=== PATIENT | male | born 1945 | race Caucasian/White ===

== ENCOUNTER 2023-07-03 12:39 | Inpatient (IN) | payer OTHER, MEDICAID ==
[~2023-07-03] VITALS: Ht 157.5 cm; Wt 79.9 kg
[~2023-07-03 12:39] MED LIST: AMLO10TA80 MT; HYDR50TA40 MT; LOSA100T33 MT; METF-416 MT; OMEP20CA14 MT; TAMS-11 MT
[2023-07-03 13:51] LABS: BASOPHILS % 0.7 % (0.0-2.0); EOSINOPHILS % 0.5 % (0.0-5.0); HEMATOCRIT. 38.9 % (42.0-52.0); HEMOGLOBIN. 13.1 g/dL (14.0-18.0); MEAN CORPUSCULAR HEMOGLOBIN 31.3 pg (28.0-32.0); MEAN CORPUSCULAR HGB CONC 33.8 g/dL (31.0-37.0); MEAN CORPUSCULAR VOLUME 92.5 fL (80.0-94.0); MEAN PLATELET VOLUME 8.2 fl (7.4-10.4); MONOCYTES % 7.6 % (2.0-8.0); NEUTROPHILS % 74.2 % (40.0-76.0); PLATELET 184 x1000/uL (130-400); RED CELL DISTRIBUTION WIDTH 13.8 % (11.6-14.6); WHITE BLOOD COUNT 4.6 x1000/uL (4.5-11.0)
[2023-07-03] MEDS: NITROGLYCERIN 0.4MG TABLET SL SL ONE (13:57)
[2023-07-03] MEDS: ASPIRIN 325MG EC TABLET PO ONE (13:57)
[2023-07-03 13:58] LABS: CHLORIDE 105 mEq/L (98-107); POTASSIUM 3.3 mEq/L (3.5-5.1); SODIUM 139 mEq/L (136-145)
[2023-07-03 13:59] LABS: CARBON DIOXIDE 25 mEq/L (21-32)
[2023-07-03 14:00] LABS: CALCIUM 9.5 mg/dL (8.7-10.4)
[2023-07-03 14:04] LABS: GLUCOSE 257 mg/dL (70-105); PROTHROMBIN TIME 11.1 sec (9.6-11.0); UREA NITROGEN BLOOD 12 mg/dL (9-23)
[2023-07-03 14:06] LABS: ALANINE AMINOTRANSFERASE 19 IU/L (10-49); ALBUMIN 4.1 g/dL (3.2-4.8); ASPARTATE AMINOTRANSFERASE 25 IU/L (<34)
[2023-07-03 14:07] LABS: BILIRUBIN TOTAL 0.8 mg/dL (0.1-1.0); PROTEIN TOTAL 7.2 g/dL (6.0-8.3)
[2023-07-03 14:08] LABS: TROPONIN I HIGH SENSITIVITY 75 ng/L (3.0-53)
[2023-07-03] MEDS: ASPIRIN 325MG EC TABLET PO NR (17:08)
[2023-07-03] MEDS: NITROGLYCERIN 0.4MG TABLET SL SL NR (17:12)
[2023-07-03] MEDS: ENOXAPARIN 100MG/ML SYR SUBCUT NR (17:17)
[2023-07-03 22:40] VITALS: BP 148/79; PULSE 78; PULSE 84; RESP 17; TEMP 98
[2023-07-04] VITALS (7 sets, daily range): BP systolic 94–165; BP diastolic 41–67; PULSE 63–90; RESP 14–24; TEMP 97.5–98
[2023-07-04] MEDS ORDERED: NALOXONE HCL 0.4MG/ML VIAL IV PRN (02:30)
[2023-07-04] MEDS: HYDRALAZINE HCL 100MG TABLET PO SCH (05:39)
[2023-07-04] MEDS: HYDROCODONE/ACETAMINOPHEN 5/325MG TABLET PO PRN (07:09)
[2023-07-04] MEDS: OMEPRAZOLE 20MG CAPSULE EXTENDED RELEASE PO SCH (07:09)
[2023-07-04 08:27] LABS: BASOPHILS % 0.9 % (0.0-2.0); EOSINOPHILS % 2.3 % (0.0-5.0); HEMATOCRIT. 41.2 % (42.0-52.0); HEMOGLOBIN. 14.1 g/dL (14.0-18.0); LYMPHOCYTES % 27.8 % (20.0-50.0); MEAN CORPUSCULAR HEMOGLOBIN 31.2 pg (28.0-32.0); MEAN CORPUSCULAR HGB CONC 34.4 g/dL (31.0-37.0); MEAN CORPUSCULAR VOLUME 90.8 fL (80.0-94.0); MEAN PLATELET VOLUME 8.2 fl (7.4-10.4); MONOCYTES % 6.5 % (2.0-8.0); NEUTROPHILS % 62.5 % (40.0-76.0); PLATELET 180 x1000/uL (130-400); RED BLOOD CELL COUNT 4.53 mill/uL (4.7-6.1); WHITE BLOOD COUNT 5.1 x1000/uL (4.5-11.0)
[2023-07-04 08:31] LABS: CHLORIDE 104 mEq/L (98-107); POTASSIUM 3.8 mEq/L (3.5-5.1); SODIUM 137 mEq/L (136-145)
[2023-07-04 08:32] LABS: CALCIUM 9.5 mg/dL (8.7-10.4); CARBON DIOXIDE 22 mEq/L (21-32)
[2023-07-04 08:37] LABS: CREATININE 0.9 mg/dL (0.6-1.3); GLUCOSE 161 mg/dL (70-105); TRIGLYCERIDE 99 mg/dL (0-150); UREA NITROGEN BLOOD 10 mg/dL (9-23)
[2023-07-04 08:38] LABS: LDL CHOLESTEROL 76 mg/dL (5-100)
[2023-07-04 08:39] LABS: CHOLESTEROL 143 mg/dL (<200); HDL CHOLESTEROL 59 mg/dL (>55)
[2023-07-04 08:56] LABS: TROPONIN I HIGH SENSITIVITY 1890 ng/L (3.0-53)
[2023-07-04] MEDS ORDERED: DEXTROSE 50% WATER 50ML SYRINGE IV PRN (09:30)
[2023-07-04] MEDS: METOPROLOL TARTRATE 100MG TABLET PO SCH (09:42)
[2023-07-04] MEDS: TAMSULOSIN HCL 0.4MG SR CAPSULE PO SCH (09:42)
[2023-07-04] MEDS: AMLODIPINE 10MG TABLET PO SCH (09:42)
[2023-07-04] MEDS: ENOXAPARIN 40MG/0.4ML SYR SUBCUT SCH (09:42)
[2023-07-04] MEDS: METFORMIN HCL 500MG TABLET PO SCH (09:42)
[2023-07-04] MEDS: LOSARTAN 100 MG TABLET PO SCH (09:42)
[2023-07-04] MEDS: ASPIRIN 81MG TABLET PO SCH (10:00)
[2023-07-04] MEDS: BLOOD SUGAR DIAGNOSTIC STRIP TEST SCH (12:40)
[2023-07-04 13:10] LABS: BASOPHILS % 0.5 % (0.0-2.0); EOSINOPHILS % 0.8 % (0.0-5.0); HEMOGLOBIN. 13.4 g/dL (14.0-18.0); MEAN CORPUSCULAR HEMOGLOBIN 31.2 pg (28.0-32.0); MEAN CORPUSCULAR HGB CONC 34.4 g/dL (31.0-37.0); MEAN CORPUSCULAR VOLUME 90.7 fL (80.0-94.0); MEAN PLATELET VOLUME 8.3 fl (7.4-10.4); MONOCYTES % 6.8 % (2.0-8.0); NEUTROPHILS % 78.9 % (40.0-76.0); PLATELET 168 x1000/uL (130-400); WHITE BLOOD COUNT 6.3 x1000/uL (4.5-11.0)
[2023-07-04] MEDS: INSULIN LISPRO 100 UNITS/ML SUBCUT SCH (13:10)
[2023-07-04] MEDS ORDERED: LIDOCAINE HCL 1% 20ML VIAL (Pyxis) INJ ONE (13:14)
[2023-07-04 13:15] LABS: PARTIAL THROMBOPLASTIN TIME 46.1 sec (23.4-31.0); PROTHROMBIN TIME 11.3 sec (9.6-11.0)
[2023-07-04] MEDS ORDERED: MIDAZOLAM HCL 2 MG/2 ML VIAL ONE (13:50)
[2023-07-04] MEDS ORDERED: FENTANYL CITRATE/PF 50MCG/ML 2ML VIAL ONE (13:50)
[2023-07-04] MEDS: SODIUM CHLORIDE 0.45% 250 ML IV SCH (14:15)
[2023-07-04] MEDS ORDERED: ATROPINE SULFATE 1MG/10ML SYR IV PRN (14:15)
[2023-07-04] MEDS ORDERED: HEPARIN 5000 UNITS/ML VIAL IV NR (16:00)
[2023-07-04] MEDS: HEPARIN 25,000 UNITS PREMIX 250 ML IV PRN (20:05)
[2023-07-04 22:59] LABS: TROPONIN I HIGH SENSITIVITY 1713 ng/L (3.0-53)
[2023-07-04 23:53] LABS: TROPONIN I HIGH SENSITIVITY 1854 ng/L (3.0-53)
[2023-07-05] VITALS: BP 108/60; PULSE 64; RESP 18; TEMP 97.8
[2023-07-05] MEDS ORDERED: HEPARIN 5000 UNITS/ML VIAL IV PRN
[2023-07-05] MEDS: HEPARIN 5000 UNITS/ML VIAL IV PRN (03:00)
[2023-07-05 04:00] VITALS: BP 102/44; PULSE 63; RESP 18; TEMP 97.6
[2023-07-05 06:33] LABS: POTASSIUM 3.9 mEq/L (3.5-5.1)
[2023-07-05 06:35] LABS: CALCIUM 8.6 mg/dL (8.7-10.4)
[2023-07-05 06:45] LABS: BASOPHILS % 0.6 % (0.0-2.0); EOSINOPHILS % 1.1 % (0.0-5.0); HEMATOCRIT. 36.2 % (42.0-52.0); HEMOGLOBIN. 12.3 g/dL (14.0-18.0); LYMPHOCYTES % 14.8 % (20.0-50.0); MEAN CORPUSCULAR HEMOGLOBIN 31.5 pg (28.0-32.0); MEAN CORPUSCULAR VOLUME 92.7 fL (80.0-94.0); MEAN PLATELET VOLUME 8.7 fl (7.4-10.4); MONOCYTES % 9.3 % (2.0-8.0); NEUTROPHILS % 74.2 % (40.0-76.0); PLATELET 150 x1000/uL (130-400); RED BLOOD CELL COUNT 3.91 mill/uL (4.7-6.1); RED CELL DISTRIBUTION WIDTH 13.7 % (11.6-14.6); WHITE BLOOD COUNT 5.2 x1000/uL (4.5-11.0)
[2023-07-05 06:58] LABS: CREATININE 1.8 mg/dL (0.6-1.3)
[2023-07-05 08:00] VITALS: BP 94/52; PULSE 78; RESP 17; TEMP 97.8; TEMP 98
[2023-07-05] MEDS: ACETAMINOPHEN 325MG TABLET PO PRN (08:32)
[2023-07-05 12:00] VITALS: BP 98/50; PULSE 61; RESP 23; TEMP 98.3
[2023-07-05] MEDS: SODIUM CHLORIDE 0.9% 1,000 ML IV SCH ×2 (13:31→21:41)
[2023-07-05 16:04] VITALS: BP 90/62; PULSE 65; RESP 21; TEMP 98.2
[2023-07-05 20:00] VITALS: BP 95/57; PULSE 63; RESP 15; TEMP 98.2
[2023-07-05] MEDS: ATORVASTATIN CALCIUM 40MG TABLET PO SCH (21:38)
[2023-07-05] MEDS: DOCUSATE SODIUM 100MG CAPSULE PO NR (21:41)
[2023-07-05] MEDS: POLYETHYLENE GLYCOL 3350 (17GM) 1 DOSE PACK PO NR (21:41)
[2023-07-06] VITALS (9 sets, daily range): BP systolic 99–127; BP diastolic 36–56; PULSE 65–88; RESP 12–22; TEMP 97.5–98.4
[2023-07-06 06:53] LABS: CHLORIDE 106 mEq/L (98-107); POTASSIUM 3.9 mEq/L (3.5-5.1); SODIUM 135 mEq/L (136-145)
[2023-07-06 06:54] LABS: CALCIUM 8.9 mg/dL (8.7-10.4); CARBON DIOXIDE 22 mEq/L (21-32)
[2023-07-06 06:59] LABS: CREATININE 1.9 mg/dL (0.6-1.3); GLUCOSE 126 mg/dL (70-105); UREA NITROGEN BLOOD 24 mg/dL (9-23)
[2023-07-06 07:01] LABS: CREATINE KINASE 413 IU/L (46-171)
[2023-07-06 07:02] LABS: PHOSPHORUS 4.3 mg/dL (2.5-4.9)
[2023-07-06 07:49] LABS: BASOPHILS % 0.5 % (0.0-2.0); EOSINOPHILS % 1.2 % (0.0-5.0); HEMOGLOBIN. 12.7 g/dL (14.0-18.0); LYMPHOCYTES % 19.9 % (20.0-50.0); MEAN CORPUSCULAR HEMOGLOBIN 31.5 pg (28.0-32.0); MEAN CORPUSCULAR HGB CONC 34.4 g/dL (31.0-37.0); MEAN CORPUSCULAR VOLUME 91.5 fL (80.0-94.0); MONOCYTES % 8.7 % (2.0-8.0); NEUTROPHILS % 69.7 % (40.0-76.0); PLATELET 144 x1000/uL (130-400); RED BLOOD CELL COUNT 4.04 mill/uL (4.7-6.1); RED CELL DISTRIBUTION WIDTH 13.8 % (11.6-14.6); WHITE BLOOD COUNT 4.7 x1000/uL (4.5-11.0)
[2023-07-06 08:49] LABS: CLARITY URINE CLEAR (CLEAR); COLOR URINE YELLOW (YELLOW); GLUCOSE URINE NEGATIVE (NEGATIVE); KETONES URINE 1+ (NEGATIVE); LEUKOCYTE ESTERASE URINE NEGATIVE (NEGATIVE); NITRITE URINE NEGATIVE (NEGATIVE); OCCULT BLOOD URINE NEGATIVE (NEGATIVE); PROTEIN URINE NEGATIVE (NEGATIVE); SPECIFIC GRAVITY URINE 1.014 (1.005-1.030); UROBILINOGEN URINE 0.2 E.U./dL (0.2-1.0)
[2023-07-06 12:42] LABS: BG CARBOXYHEMOGLOBIN 0.3 % (0.5-1.5); BG DEOXYHEMOGLOBIN 3.4 % (0.0-5.0); BG FRACTION INSPIRED OXYGEN 28; BG HCO3 ACT 18.9 mmol/L (22.0-26.0); BG METHEMOGLOBIN 0.2 % (0.0-1.5); BG OXYGEN SATURATION 96.6 % (92.0-98.5); BG OXYHEMOGLOBIN 96.1 % (94.0-97.0); BG PO2 90.1 mmHg (75.0-100.0); BG TOTAL HEMOGLOBIN 13.8 g/dL (12.0-18.0); BG VENT MODE NASAL CANNULA
[2023-07-06] MEDS: METOPROLOL TARTRATE 25MG TABLET PO NR (13:35)
[2023-07-06] MEDS: HYDRALAZINE HCL 25MG TABLET PO SCH (14:00)
[2023-07-06] MEDS: METOPROLOL TARTRATE 25MG TABLET PO SCH (20:54)
[2023-07-07] VITALS: BP 91/40; PULSE 57; RESP 10; TEMP 97.8
[2023-07-07 04:00] VITALS: BP 100/44; PULSE 66; RESP 19; TEMP 98
[2023-07-07 06:25] LABS: BASOPHILS % 0.5 % (0.0-2.0); EOSINOPHILS % 1.3 % (0.0-5.0); HEMATOCRIT. 33.5 % (42.0-52.0); HEMOGLOBIN. 11.6 g/dL (14.0-18.0); LYMPHOCYTES % 19.8 % (20.0-50.0); MEAN CORPUSCULAR HEMOGLOBIN 31.5 pg (28.0-32.0); MEAN CORPUSCULAR HGB CONC 34.5 g/dL (31.0-37.0); MEAN CORPUSCULAR VOLUME 91.4 fL (80.0-94.0); MEAN PLATELET VOLUME 8.6 fl (7.4-10.4); MONOCYTES % 10.7 % (2.0-8.0); NEUTROPHILS % 67.7 % (40.0-76.0); PLATELET 124 x1000/uL (130-400); RED BLOOD CELL COUNT 3.67 mill/uL (4.7-6.1); RED CELL DISTRIBUTION WIDTH 13.5 % (11.6-14.6)
[2023-07-07 06:29] LABS: CALCIUM 8.4 mg/dL (8.7-10.4); CARBON DIOXIDE 22 mEq/L (21-32); CHLORIDE 106 mEq/L (98-107); SODIUM 136 mEq/L (136-145)
[2023-07-07 06:34] LABS: CREATININE 1.3 mg/dL (0.6-1.3); GLUCOSE 101 mg/dL (70-105)
[2023-07-07 06:35] LABS: UREA NITROGEN BLOOD 19 mg/dL (9-23)
[2023-07-07 06:37] LABS: PHOSPHORUS 4.2 mg/dL (2.5-4.9)
[2023-07-07 08:00] VITALS: BP 122/50; PULSE 73; RESP 16; TEMP 97.7
[2023-07-07] MEDS: AZITHROMYCIN 500 MG TABLET PO NR (09:29)
[2023-07-07] MEDS: FAMOTIDINE 20MG TABLET PO SCH (09:29)
[2023-07-07] MEDS: CEFTRIAXONE 1GM/50ML 50 ML IV SCH (11:15)
[2023-07-07 12:00] VITALS: BP 114/58; PULSE 58; RESP 17; TEMP 98.2
[2023-07-07 16:00] VITALS: BP 112/61; PULSE 67; RESP 18; TEMP 98.5
[2023-07-07 20:00] VITALS: BP 132/58; PULSE 73; RESP 16; TEMP 97.3
[2023-07-08] VITALS (7 sets, daily range): BP systolic 125–148; BP diastolic 55–70; PULSE 60–81; RESP 14–22; TEMP 97.6–98.9
[2023-07-08 05:52] LABS: BASOPHILS % 0.7 % (0.0-2.0); HEMATOCRIT. 33.5 % (42.0-52.0); HEMOGLOBIN. 11.6 g/dL (14.0-18.0); MEAN CORPUSCULAR HEMOGLOBIN 31.6 pg (28.0-32.0); MEAN CORPUSCULAR HGB CONC 34.8 g/dL (31.0-37.0); MEAN CORPUSCULAR VOLUME 90.9 fL (80.0-94.0); MEAN PLATELET VOLUME 9.3 fl (7.4-10.4); MONOCYTES % 9.8 % (2.0-8.0); NEUTROPHILS % 69.5 % (40.0-76.0); PLATELET 131 x1000/uL (130-400); RED BLOOD CELL COUNT 3.68 mill/uL (4.7-6.1); RED CELL DISTRIBUTION WIDTH 13.6 % (11.6-14.6)
[2023-07-08 05:54] LABS: CHLORIDE 105 mEq/L (98-107); POTASSIUM 4.2 mEq/L (3.5-5.1); SODIUM 135 mEq/L (136-145)
[2023-07-08 05:55] LABS: CALCIUM 8.7 mg/dL (8.7-10.4); CARBON DIOXIDE 22 mEq/L (21-32)
[2023-07-08 06:00] LABS: CREATININE 1.1 mg/dL (0.6-1.3); GLUCOSE 172 mg/dL (70-105); UREA NITROGEN BLOOD 16 mg/dL (9-23)
[2023-07-08 06:02] LABS: PHOSPHORUS 3.5 mg/dL (2.5-4.9)
[2023-07-08] MEDS: AZITHROMYCIN 250 MG TABLET PO SCH (08:51)
[2023-07-08] MEDS: NITROGLYCERIN 0.4MG TABLET SL SL PRN (22:41)
[2023-07-09] VITALS: BP 145/69; PULSE 63; RESP 12; TEMP 98.3
[2023-07-09 04:00] VITALS: BP 144/98; PULSE 66; RESP 19; TEMP 97.6
[2023-07-09 08:00] VITALS: BP 150/53; PULSE 73; RESP 21; TEMP 98.2
[2023-07-09 12:00] VITALS: BP 133/81; PULSE 70; RESP 20; TEMP 97.9
[2023-07-09] MEDS ORDERED: NALOXONE HCL 0.4MG/ML VIAL IV PRN (13:45)
[2023-07-09] MEDS: CLOPIDOGREL 75MG TABLET PO NR (14:51)
[2023-07-09] MEDS: AMLODIPINE 2.5MG TABLET PO SCH (14:54)
[2023-07-09 16:00] VITALS: BP 151/84; PULSE 72; RESP 20; TEMP 98
[2023-07-09 19:50] VITALS: BP 161/54; PULSE 77; RESP 22; TEMP 98.6
[2023-07-10] VITALS (7 sets, daily range): BP systolic 96–149; BP diastolic 66–78; PULSE 64–83; RESP 14–27; TEMP 97.6–98.5
[2023-07-10] MEDS: MORPHINE SULFATE 2 MG/ML CPJ (NOT FOR IM USE) IV PRN (01:36)
[2023-07-10 07:03] LABS: BASOPHILS % 0.4 % (0.0-2.0); EOSINOPHILS % 0.6 % (0.0-5.0); HEMATOCRIT. 34.6 % (42.0-52.0); LYMPHOCYTES % 10.8 % (20.0-50.0); MEAN CORPUSCULAR HEMOGLOBIN 31.6 pg (28.0-32.0); MEAN CORPUSCULAR HGB CONC 34.8 g/dL (31.0-37.0); MEAN CORPUSCULAR VOLUME 90.7 fL (80.0-94.0); MEAN PLATELET VOLUME 9.8 fl (7.4-10.4); MONOCYTES % 8.5 % (2.0-8.0); NEUTROPHILS % 79.7 % (40.0-76.0); PLATELET 146 x1000/uL (130-400); RED BLOOD CELL COUNT 3.81 mill/uL (4.7-6.1); RED CELL DISTRIBUTION WIDTH 13.7 % (11.6-14.6); WHITE BLOOD COUNT 6.3 x1000/uL (4.5-11.0)
[2023-07-10 07:16] LABS: CARBON DIOXIDE 23 mEq/L (21-32); CHLORIDE 105 mEq/L (98-107); POTASSIUM 3.7 mEq/L (3.5-5.1); SODIUM 136 mEq/L (136-145)
[2023-07-10 07:17] LABS: CALCIUM 9.2 mg/dL (8.7-10.4)
[2023-07-10 07:22] LABS: GLUCOSE 124 mg/dL (70-105); UREA NITROGEN BLOOD 11 mg/dL (9-23)
[2023-07-10 07:24] LABS: PHOSPHORUS 3.3 mg/dL (2.5-4.9)
[2023-07-10] MEDS ORDERED: VERAPAMIL HCL 2.5 MG/1 ML 2ML VIAL IV ONE ×2 (08:16→10:14)
[2023-07-10] MEDS ORDERED: LIDOCAINE HCL 1% 10 MG/ML 10ML VIAL ONE (08:16)
[2023-07-10] MEDS ORDERED: IODIXANOL 320MG/ML 100 ML BOTTLE IV ONE ×6 (08:17→15:17)
[2023-07-10] MEDS ORDERED: HEPARIN 1000 UNITS/ML 10ML ONE ×2 (08:17→09:43)
[2023-07-10] MEDS ORDERED: DIPHENHYDRAMINE 50MG/ML VIAL ONE (08:17)
[2023-07-10] MEDS ORDERED: NOREPINEPHRINE 8MG/250ML PMX 250 ML IV ONE (08:53)
[2023-07-10] MEDS ORDERED: FENTANYL CITRATE/PF 50MCG/ML 2ML VIAL ONE (08:58)
[2023-07-10] MEDS ORDERED: MIDAZOLAM HCL 2 MG/2 ML VIAL ONE (08:58)
[2023-07-10] MEDS ORDERED: METOPROLOL TARTRATE 5MG/5ML VIAL IV ONE ×2 (09:17→09:42)
[2023-07-10] MEDS ORDERED: AMIODARONE HCL 50MG/ML 3ML VIAL IV ONE (09:19)
[2023-07-10] MEDS ORDERED: AMIODARONE HCL 900 MG in DEXT 5% WATER 500 ML IV PRN (09:45)
[2023-07-10] MEDS ORDERED: CLOPIDOGREL 75MG TABLET ONE (10:19)
[2023-07-10] MEDS ORDERED: ATROPINE SULFATE 1MG/10ML SYR IV PRN (11:30)
[2023-07-10] MEDS: SODIUM CHLORIDE 0.45% 250 ML IV ONE (11:42)
[2023-07-10] MEDS ORDERED: VANCOMYCIN HCL 500 MG/VIAL ONE (13:04)
[2023-07-10] MEDS: METOPROLOL TARTRATE 25MG TABLET PO NR (14:40)
[2023-07-10] MEDS: ZOLPIDEM TARTRATE 5MG TABLET PO PRN (21:45)
[2023-07-11] VITALS (7 sets, daily range): BP systolic 88–144; BP diastolic 49–85; PULSE 67–125; RESP 18–32; TEMP 98.3–98.9
[2023-07-11] MEDS: AMIODARONE HCL 200 MG TABLET PO NR (04:04)
[2023-07-11] MEDS: DILTIAZEM HCL 5MG/ML 5ML VIAL IV NR (04:05)
[2023-07-11 07:45] LABS: BASOPHILS % 0.3 % (0.0-2.0); EOSINOPHILS % 0.2 % (0.0-5.0); HEMOGLOBIN. 11.1 g/dL (14.0-18.0); LYMPHOCYTES % 11.1 % (20.0-50.0); MEAN CORPUSCULAR HEMOGLOBIN 31.6 pg (28.0-32.0); MEAN CORPUSCULAR HGB CONC 33.8 g/dL (31.0-37.0); MEAN CORPUSCULAR VOLUME 93.5 fL (80.0-94.0); MEAN PLATELET VOLUME 9.1 fl (7.4-10.4); MONOCYTES % 10.4 % (2.0-8.0); PLATELET 128 x1000/uL (130-400); RED BLOOD CELL COUNT 3.53 mill/uL (4.7-6.1); RED CELL DISTRIBUTION WIDTH 13.6 % (11.6-14.6); WHITE BLOOD COUNT 6.9 x1000/uL (4.5-11.0)
[2023-07-11 08:03] LABS: CHLORIDE 104 mEq/L (98-107); POTASSIUM 3.6 mEq/L (3.5-5.1); SODIUM 132 mEq/L (136-145)
[2023-07-11 08:06] LABS: CARBON DIOXIDE 22 mEq/L (21-32)
[2023-07-11 08:07] LABS: CALCIUM 8.4 mg/dL (8.7-10.4)
[2023-07-11 08:12] LABS: GLUCOSE 182 mg/dL (70-105); UREA NITROGEN BLOOD 11 mg/dL (9-23)
[2023-07-11] MEDS: CLOPIDOGREL 75MG TABLET PO SCH (09:47)
[2023-07-11] MEDS: AMIODARONE HCL 200 MG TABLET PO SCH (11:03)
[2023-07-11] MEDS: ACETAMINOPHEN 325MG TABLET PO PRN (23:49)
[2023-07-12] VITALS: BP 125/50; PULSE 64; RESP 23; TEMP 98.2
[2023-07-12 04:00] VITALS: BP 105/47; PULSE 62; RESP 21; TEMP 98
[2023-07-12 06:45] LABS: BASOPHILS % 0.6 % (0.0-2.0); EOSINOPHILS % 1.7 % (0.0-5.0); HEMATOCRIT. 29.1 % (42.0-52.0); HEMOGLOBIN. 10.2 g/dL (14.0-18.0); LYMPHOCYTES % 13.4 % (20.0-50.0); MEAN CORPUSCULAR HEMOGLOBIN 31.8 pg (28.0-32.0); MEAN CORPUSCULAR HGB CONC 35.1 g/dL (31.0-37.0); MEAN CORPUSCULAR VOLUME 90.8 fL (80.0-94.0); MEAN PLATELET VOLUME 9.4 fl (7.4-10.4); MONOCYTES % 11.8 % (2.0-8.0); NEUTROPHILS % 72.5 % (40.0-76.0); PLATELET 129 x1000/uL (130-400); RED BLOOD CELL COUNT 3.21 mill/uL (4.7-6.1); RED CELL DISTRIBUTION WIDTH 13.6 % (11.6-14.6); WHITE BLOOD COUNT 4.8 x1000/uL (4.5-11.0)
[2023-07-12 06:58] LABS: CARBON DIOXIDE 26 mEq/L (21-32); CHLORIDE 102 mEq/L (98-107); POTASSIUM 3.8 mEq/L (3.5-5.1); SODIUM 135 mEq/L (136-145)
[2023-07-12 06:59] LABS: CALCIUM 8.3 mg/dL (8.7-10.4)
[2023-07-12 07:04] LABS: GLUCOSE 120 mg/dL (70-105); UREA NITROGEN BLOOD 15 mg/dL (9-23)
[2023-07-12 07:05] LABS: THYROID STIMULATING HORMONE 0.93 uIU/mL (0.55-4.78)
[2023-07-12 07:06] LABS: PHOSPHORUS 3.5 mg/dL (2.5-4.9)
[2023-07-12] MEDS ORDERED: VERAPAMIL HCL 2.5 MG/1 ML 2ML VIAL IV ONE (07:53)
[2023-07-12] MEDS ORDERED: LIDOCAINE HCL 1% 20ML VIAL (Pyxis) INJ ONE (07:53)
[2023-07-12] MEDS ORDERED: HEPARIN 1000 UNITS/ML 10ML ONE (07:54)
[2023-07-12] MEDS ORDERED: MIDAZOLAM HCL 2 MG/2 ML VIAL ONE (07:54)
[2023-07-12] MEDS ORDERED: FENTANYL CITRATE/PF 50MCG/ML 2ML VIAL ONE (07:54)
[2023-07-12 08:00] VITALS: BP 128/62; PULSE 84; RESP 14; TEMP 98.1
[2023-07-12] MEDS ORDERED: DIPHENHYDRAMINE 50MG/ML VIAL ONE (09:00)
[2023-07-12] MEDS ORDERED: CLOPIDOGREL 75MG TABLET ONE (10:20)
[2023-07-12] MEDS ORDERED: ATROPINE SULFATE 1MG/10ML SYR IV PRN (11:00)
[2023-07-12 12:00] VITALS: BP 136/88; PULSE 58; RESP 19; TEMP 98.3
[2023-07-12 16:00] VITALS: BP 137/71; PULSE 66; RESP 22; TEMP 98
[2023-07-12 20:00] VITALS: BP 126/62; PULSE 70; RESP 24; TEMP 98.2
[2023-07-13] VITALS: BP 120/71; PULSE 60; RESP 17; TEMP 98.5
[2023-07-13] MEDS: DOCUSATE SODIUM 250MG CAPSULE PO PRN (01:29)
[2023-07-13] MEDS: FAMOTIDINE 20MG TABLET PO SCH (01:29)
[2023-07-13 04:00] VITALS: BP 125/59; PULSE 54; RESP 13; TEMP 98.9
[2023-07-13 07:06] LABS: CHLORIDE 101 mEq/L (98-107); POTASSIUM 3.8 mEq/L (3.5-5.1); SODIUM 134 mEq/L (136-145)
[2023-07-13 07:07] LABS: CARBON DIOXIDE 26 mEq/L (21-32)
[2023-07-13 07:08] LABS: CALCIUM 8.5 mg/dL (8.7-10.4)
[2023-07-13 07:12] LABS: GLUCOSE 124 mg/dL (70-105); UREA NITROGEN BLOOD 15 mg/dL (9-23)
[2023-07-13 07:21] LABS: BASOPHILS % 0.5 % (0.0-2.0); EOSINOPHILS % 3.1 % (0.0-5.0); HEMATOCRIT. 30.8 % (42.0-52.0); HEMOGLOBIN. 10.6 g/dL (14.0-18.0); LYMPHOCYTES % 15.7 % (20.0-50.0); MEAN CORPUSCULAR HEMOGLOBIN 31.4 pg (28.0-32.0); MEAN CORPUSCULAR HGB CONC 34.6 g/dL (31.0-37.0); MEAN CORPUSCULAR VOLUME 90.8 fL (80.0-94.0); MEAN PLATELET VOLUME 8.9 fl (7.4-10.4); MONOCYTES % 11.3 % (2.0-8.0); NEUTROPHILS % 69.4 % (40.0-76.0); PLATELET 156 x1000/uL (130-400); RED BLOOD CELL COUNT 3.39 mill/uL (4.7-6.1); RED CELL DISTRIBUTION WIDTH 13.3 % (11.6-14.6)
[2023-07-13 08:00] VITALS: BP 141/74; PULSE 74; RESP 16; TEMP 98.6
[2023-07-13] MEDS ORDERED: LIP40 PO (10:42)
[2023-07-13] MEDS ORDERED: AMIO100T4 MT (10:42)
[2023-07-13] MEDS ORDERED: METO25TA6 PO (10:42)
[2023-07-13] MEDS ORDERED: ASPI-1160 PO (10:42)
[2023-07-13] MEDS ORDERED: CLOP-31 PO (10:42)
[2023-07-13] MEDS ORDERED: AMI2 PO (10:42)
[2023-07-13 12:00] VITALS: BP 153/49; PULSE 62; RESP 20; TEMP 98.4
[2023-07-13] MEDS: ACETAMINOPHEN 325MG TABLET PO PRN (13:31)
[2023-07-13 16:00] VITALS: BP 133/66; PULSE 67; RESP 20; TEMP 98.1
[2023-07-13 20:03] VITALS: BP 144/68; PULSE 77; RESP 18; TEMP 97.6
[2023-07-14 00:26] VITALS: BP 119/71; PULSE 60; RESP 15; TEMP 98.2
[2023-07-14 04:00] VITALS: BP 128/74; PULSE 64; RESP 19; TEMP 97.2
[2023-07-14 08:09] VITALS: BP 139/71; PULSE 73; RESP 21; TEMP 98.1
[2023-07-14 12:00] VITALS: BP 131/84; PULSE 60; RESP 20; TEMP 97.9
[2023-07-14] MEDS: LEVOFLOXACIN 500MG PREMIX 100 ML IV SCH (15:27)
[2023-07-14 16:00] VITALS: BP 140/61; PULSE 59; RESP 14; TEMP 98.2
[2023-07-14 16:45] LABS: BG BASE EXCESS 2.9 mmol/L (-2.0-2.0); BG CARBOXYHEMOGLOBIN 0.2 % (0.5-1.5); BG DEOXYHEMOGLOBIN 3.9 % (0.0-5.0); BG FRACTION INSPIRED OXYGEN 21; BG METHEMOGLOBIN 0.3 % (0.0-1.5); BG OXYGEN SATURATION 96.1 % (92.0-98.5); BG OXYHEMOGLOBIN 95.6 % (94.0-97.0); BG PCO2 34.8 mmHg (35.0-45.0); BG PH 7.492 (7.350-7.450); BG PO2 85.7 mmHg (75.0-100.0); BG SAMPLE SITE RIGHT RADIAL; BG TOTAL HEMOGLOBIN 10.8 g/dL (12.0-18.0); BG VENT MODE ROOM AIR
[2023-07-14 17:24] VITALS: BP 140/61; PULSE 59; TEMP 98.2; O2SAT 98
== END 2023-07-14 18:02 | disposition home or self-care (01) | DRG 321 ==
LOC: ER 12:39 → 7WST 16:53 → EDBEDREQ 16:55 → EDBEDREQTM 16:55 → 3WST 07-04 18:08
PROVIDERS: ADMIT Internal Medicine; ATTEND Internal Medicine
PROC: 4A023N7 Measurement of Cardiac Sampling and Pressure, Left Heart, Percutaneous Approach (ICD-10-PCS; principal; 2023-07-04)
PROC: B41FYZZ Fluoroscopy of Right Lower Extremity Arteries using Other Contrast (ICD-10-PCS; 2023-07-04)
PROC: B41JYZZ Fluoroscopy of Other Lower Arteries using Other Contrast (ICD-10-PCS; 2023-07-04)
PROC: B211YZZ Fluoroscopy of Multiple Coronary Arteries using Other Contrast (ICD-10-PCS; 2023-07-04)
PROC: 027034Z Dilation of Coronary Artery, One Artery with Drug-eluting Intraluminal Device, Percutaneous Approach (ICD-10-PCS; 2023-07-10)
PROC: B41FYZZ Fluoroscopy of Right Lower Extremity Arteries using Other Contrast (ICD-10-PCS; 2023-07-10)
PROC: B41JYZZ Fluoroscopy of Other Lower Arteries using Other Contrast (ICD-10-PCS; 2023-07-10)
PROC: B211YZZ Fluoroscopy of Multiple Coronary Arteries using Other Contrast (ICD-10-PCS; 2023-07-10)
PROC: 027034Z Dilation of Coronary Artery, One Artery with Drug-eluting Intraluminal Device, Percutaneous Approach (ICD-10-PCS; 2023-07-12)
PROC: B211YZZ Fluoroscopy of Multiple Coronary Arteries using Other Contrast (ICD-10-PCS; 2023-07-12)
PROC: B41GYZZ Fluoroscopy of Left Lower Extremity Arteries using Other Contrast (ICD-10-PCS; 2023-07-12)
PROC: B41JYZZ Fluoroscopy of Other Lower Arteries using Other Contrast (ICD-10-PCS; 2023-07-12)
DX: I21.4 Non-ST elevation (NSTEMI) myocardial infarction (principal); J18.9 Pneumonia, unspecified organism; N17.0 Acute kidney failure with tubular necrosis; I25.10 Atherosclerotic heart disease of native coronary artery without angina pectoris; I49.3 Ventricular premature depolarization; E11.9 Type 2 diabetes mellitus without complications; E78.00 Pure hypercholesterolemia, unspecified; I10 Essential (primary) hypertension; Z87.891 Personal history of nicotine dependence; I25.2 Old myocardial infarction; D64.9 Anemia, unspecified; I16.0 Hypertensive urgency; I48.91 Unspecified atrial fibrillation; Z20.822 Contact with and (suspected) exposure to COVID-19; Z82.49 Family history of ischemic heart disease and other diseases of the circulatory system; Z83.3 Family history of diabetes mellitus
CPT/HCPCS: 36415; 36600; 71045; 71250; 74018; 76700; 80048; 80053; 80061; 81003; 82375; 82550; 82805; 82962; 83735; 84100; 84443; 84484; 85025; 85347; 87426; 92928; 93005; 93306; 93454; 93458; 93880; 93970; 94618; 99291; C1725; C1760; C1769; C1874; C1887; C1893; J0282; J0696; J1200; J1644; J1650; J1815; J1956; J2250; J2270; J3010; J3370; J3490; J7030; Q9967